=== PATIENT | female | born 1990 ===

== ENCOUNTER → 2020-03-02 | Outpatient (CLI) | payer OTHER ==
--- NOTE | 2020-03-02 13:08 | RAD ---
ADDENDUM #1 Addendum: The amniotic fluid index is normal. Electronically signed by: Charlene Loya MD (03/02/2020 3:50 PM) [id number] ORIGINAL REPORT EXAM: Obstetrics sonogram. HISTORY: anatomy survey. TECHNIQUE: Sonographic imaging of a gravid uterus was performed. COMPARISON: None. FINDINGS: There is a single intrauterine fetus in breech presentation with a normal heart rate of 155 bpm. body motion is seen. The stomach, kidneys, bladder, spine, brain, facial profile, e xtremities and heart are unremarkable. There is a three-vessel umbilical cord with normal insertion. The cervix is closed and measures 4.3 cm in length. The maternal adnexal regions are unremarkable. Th ere is a grade 1 fundal placenta without evidence of placenta previa. The biparietal diameter is 4.08 cm, corresponding with 18 weeks and 3 days. The head circumference is 13.1 cm, corresponding with 18 weeks and 1 day days. The abdominal circumference is 13.0 cm, corresp onding with 18 weeks and 4 days days. The femoral length is 2.60 cm, corresponding with 18 weeks and 0 days days. The estimated gestational age patient combined ultrasound measurements is 17 weeks and 6 days and the estimated weight is 8 ounces. IMPRESSION: 1. Single intrauterine fetus with normal heart rate and gestational age patient ultrasound measuremen ts of 17 weeks and 6 days. 2. Unremarkable anatomy survey. Electronically signed by: Charlene Loya MD (03/02/2020 1:05 PM) [id number]
== END ==
LOC: US 09:53
PROVIDERS: ATTEND Family Medicine
DX: O32.1XX0 Maternal care for breech presentation, not applicable or unspecified (principal); Z3A.17 17 weeks gestation of pregnancy
CPT/HCPCS: 76805

== ENCOUNTER → 2020-05-26 | Outpatient (CLI) | payer OTHER ==
--- NOTE | 2020-05-26 16:01 | RAD ---
EXAM: OB ULTRASOUND, > 14 WEEKS HISTORY: Large for dates. COMPARISON: 03/02/2020. TECHNIQUE: Multiple grayscale images, color Doppler, and M-mode images of the uterus are obtained. FINDINGS: There is a single intrauterine gestation in cephalic presentation. The placenta is fundal in location without evidence of placenta previa. The amount of amniotic fluid appears appropriate. Amniotic flu id index is 11.5 cm. Cervical length is 5.4 cm. Biometrical data: BPD = 7.74 cm for 31 weeks 0 days. HC = 28.31 cm for 31 weeks 0 days. AC = 25.35 cm for 29 weeks 4 days. FL = 5.51 cm for 29 weeks 0 days. HC/AC ratio = 1.12. Overall, the estimated sonographic gestational age is 30 weeks and 1 day for an estimated date of del eze of 08/03/2020. The estimated date of delivery provided by the last menstrual period is 08/08/2020. Estimated weight is 1429 grams. This corresponds with the 58th percentile for a gestational a ge of 29 weeks and 3 days based on LMP. A 4 chamber heart is identified with positive cardiac activity. The estimated heart rate is 150 beats per minute. The anatomy is not formally assessed on this exam. IMPRESSION: 1. Single intrauterine fetus in cephalic presentation with a normal heart rate and gestational age ba sed on ultrasound measurements of 30 weeks and 1 day. The estimated gestational age patient LMP is 29 weeks and 3 days. 2. Note is made that a formal anatomy survey was performed on the prior study dated 03/02/2020. Electronically signed by: Charlene Loya MD (05/26/2020 3:59 PM) [id number]
== END ==
LOC: US 10:00
PROVIDERS: ATTEND Family Medicine
DX: O26.843 Uterine size-date discrepancy, third trimester (principal); Z3A.29 29 weeks gestation of pregnancy
CPT/HCPCS: 76815